=== PATIENT | male | born 2005 | race Asian ===

== ENCOUNTER 2024-04-26 20:42 | Emergency (ER) | payer SELFPAY ==
[2024-04-26 21:01] VITALS: BP 131/100; O2SAT 100
--- NOTE | 2024-04-26 21:42 | ED Physician Documentation ---
PD HPI SKIN - Stated complaint Stated Complaint: HEAD LAC - Chief complaint Chief Complaint: Laceration - Additional information Additional information: 18-year-old male presents emergency department with laceration to the posterior scalp. Patient says that he was using an exercise band and accidentally was let go too early by someone else and hit him in the back of his head. Bleeding is well-controlled he is up-to-date with his tetanus shot he is not immunocompromise. PD PAST MEDICAL HISTORY - Past Medical History Past Medical History: No - Past Surgical History Past Surgical History: No - Allergies Allergies/Adverse Reactions: Allergies Allergy/AdvReac Type Severity Reaction Status Date / Time ibuprofen Allergy Anaphylaxis Verified 04/26/24 20:46 - Social History Does the pt smoke?: No Smoking Status: Never smoker Does the pt drink ETOH?: Yes Does the pt have substance abuse?: No - Immunizations Immunizations are current?: Yes - POLST Patient has POLST: No PD ED PE NORMAL - Vitals Vital signs reviewed: Yes - General General: Alert and oriented X 3, No acute distress, Well developed/nourished - HEENT HEENT: Other (1cm laceration to posterior scalp) - Neuro Neuro: Alert and oriented X 3, 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, No motor deficit, No sensory deficit, Normal speech Eye Opening: Spontaneous Motor: Obeys Commands Verbal: Oriented GCS Score: 15 - Psych Psych: Normal mood Results - Vitals Vitals: Vital Signs - 24 hr 04/26/24 04/26/24 20:46 21:46 Temperature 37.1 C Heart Rate 92 92 Respiratory 13 13 Rate Blood Pressure 131/100 H 131/100 H O2 Saturation 100 100 Oxygen O2 Source Room air Procedures - Laceration (location) posterior scalp Length in cm: 1.2 Wound type: Linear, Clean Wound preparation: Irrigated copiously NS Skin layer closure: Dermabond, Other (two knots with hair apposition technique and demabond) Other: Patient tolerated well, Tetanus UTD PD Medical Decision Making - ED course ED course: Posterior scalp laceration measuring about 1.2 cm in length bleeding is well- controlled patient is up-to-date with his tetanus shot. He was offered tata versus hair apposition technique and patient opted for the hair apposition technique. 2 knots Were made with his hair as well as topped with Dermabond bleeding was well-controlled and wound edges were well-approximated. He was taught signs symptoms of infection to watch out for and how to care for this at home. All questions answered patient safe for discharge. Departure - Departure Disposition: 01 Home, Self Care Clinical Impression: Laceration of head Qualifiers: Encounter type: initial encounter Location of open wound of head: scalp Foreign body presence: without foreign body Qualified Code(s): S01.01XA - Laceration without foreign body of scalp, initial encounter Instructions: ED Laceration Ext Skin Glue Comments: Thank you for trusting us with your care we have put some glue on the back of your scalp with 2 hair knots. Please leave this alone for the next 12 days it is okay tomorrow to shower with soap and water just do not scrub the area and do not brush this area with a hairbrush. After 12 days you can either shave off that patch of hair where the knot was or you can start brushing out the knots and getting the glue out that way. Eventually the knots will grow out with the glue if you just leave it alone. Please watch out for signs symptoms of infection which include redness, swelling, drainage that is yellow or green. Forms: PCP List Discharge Date/Time: 04/26/24 21:47
== END 2024-04-26 21:47 | disposition home or self-care (01) ==
LOC: ED 20:42
DX: S01.01XA Laceration without foreign body of scalp, initial encounter (principal); W45.8XXA Other foreign body or object entering through skin, initial encounter
CPT/HCPCS: 12001; 99283